=== PATIENT | female | born 2000 | race Caucasian/White ===

== ENCOUNTER 2021-08-24 20:30 | Emergency (ER) | payer OTHER, MEDICAID, SELFPAY ==
--- NOTE | ~2021-08-24 | CT_ITS ---
EXAMINATION: CT abdomen pelvis w con DATE: 08/25/2021 00:37 INDICATION: Right abdominal pain. TECHNIQUE: Computed tomography (CT) of the abdomen and pelvis was performed with 100 mL Omnipaque-350 intravenous contrast. Automated exposure control and iterative reconstruction technique were employe d. The dose-length product was 1581.98 mGy-cm. COMPARISON: None FINDINGS: Mild atelectasis at the lung bases likely related to expiratory phase of imaging. Heart size is sunny l. No pericardial or pleural effusion. Diffuse hepatic steatosis with focal sparing along the gallbla dder fossa. Gallbladder, pancreas, spleen and left adrenal gland are normal. Right adrenal calcificat ions suggesting prior infection or hemorrhage. Left kidney is normal. Is scattered mild cortical scar ring at the right kidney likely sequela of prior infection or infarction. A few scattered colonic div erticula without adjacent inflammatory change to suggest diverticulitis. Small bowel and appendix are normal. Bladder, anteverted uterus and bilateral adnexa are unremarkable. No free intraperitoneal ga s or fluid. No pathologically enlarged abdominal or pelvic lymphadenopathy. Bones are unremarkable. IMPRESSION: 1. No acute intra-abdominal/pelvic process. Specifically the appendix is normal. 2. Diffuse hepatic steatosis. Reviewed, dictated and finalized at location A. IMPRESSION: 1. No acute intra-abdominal/pelvic process. Specifically the appendix is normal . 2. Diffuse hepatic steatosis.
[2021-08-24 20:57] VITALS: BP 119/85; PULSE 86; RESP 18; TEMP 36.2; O2SAT 100
[2021-08-24 21:15] LABS: Basophils Percent Auto 0.5 % (0.2-1.2); Eosinophils Absolute Auto 0.2 K/mm3 (0-0.3); Eosinophils Percent Auto 2.4 % (0-4.4); Hematocrit 40.4 % (37.0-47.0); Hemoglobin 13.6 g/dL (12.0-15.0); Immature Granulocyte Absolute 0.05 K/mm3 (0.00-0.031); Immature Granulocyte Percent A 0.6 % (0-0.5); Lymphocytes Absolute Auto 3.17 K/mm3 (0.9-3.2); Lymphocytes Percent Auto 37.4 % (18.3-44.2); Mean Corpuscular HGB Conc 33.7 g/dl (32-36); Mean Corpuscular Hemoglobin 29.8 pg (26-34); Mean Corpuscular Volume 88.4 fl (80-100); Mean Platelet Volume 10.4 fl (7.4-10.4); Monocytes Absolute Auto 0.6 K/mm3 (0.1-0.6); Monocytes Percent Auto 7.2 % (2.6-8.5); Neutrophils Absolute Auto 4.4 K/mm3 (1.3-6.7); Neutrophils Percent Auto 51.9 % (45.5-73.1); Platelet Count Result 332 k/mm3 (150-375); Red Blood Count 4.57 M/mm3 (4.2-5.4); Red Cell Distribution Width 13.9 % (11.5-14.5); White Blood Count 8.5 K/mm3 (4.5-10.0)
[2021-08-24 21:25] LABS: Alanine Aminotransferase 37 U/L (4-35); Albumin Level 4.8 g/dL (3.5-5.1); Alkaline Phosphatase 75 U/L (38-126); Anion Gap 14 mmol/L (8-16); Aspartate Amino Transferase 51 U/L (14-36); Bilirubin,Total 0.3 mg/dL (0.2-1.3); Blood Urea Nitrogen 7 mg/dL (7-17); Calcium 9.5 mg/dL (8.4-10.2); Carbon Dioxide 20 mmol/L (22-30); Chloride 107 mmol/L (98-107); Estimated CRCL calculation 160 ml/min; Estimated Glomerular Filt Rate > 60; Glucose 100 mg/dL (65-110); Lipase 116 U/L (23-300); Sodium 141 mmol/L (137-145)
[2021-08-24 22:44] VITALS: BP 130/76; PULSE 73; RESP 16; O2SAT 100
[2021-08-24 23:28] LABS: Add Urine Microscopic? YES; Appearance Urine Cloudy (Clear); Bacteria Urine Trace /hpf; Bilirubin Urine Negative (Negative); Blood Urine Negative (Negative); Color Urine Yellow (Yellow); Glucose Urine UA Negative (Negative); Ketones Urine Negative (Negative); Leukocyte Esterase Ur 3+ LEU/UL (Negative); Mucus Urine Few /lpf; Nitrate Urine Negative (Negative); Protein Urine 1+ mg/dL (Negative); RBC Urine >75 /hpf (0-2); Specific Grav Ur 1.025 (1.001-1.035); Squamous Epithelial Cell Urine Many /hpf (Few); WBC Urine >75 /hpf
--- NOTE | 2021-08-24 23:43 | PC.NURSE ---
Pt in CT at this time
--- NOTE | 2021-08-25 | PC.NURSE ---
CT unable to start IV. This RN attempted IV x2. Second RN to try at this time.
--- NOTE | 2021-08-25 00:19 | PC.NURSE ---
IV placed, CT scan notified. Pt to CT scan at this time via stretcher.
--- NOTE | 2021-08-25 00:36 | ED.ABDPAIN ---
HPI - Abdominal Pain General Chief Complaint: Abdominal Pain Stated Complaint: RQ abd pain Time Seen by Provider: 08/24/21 22:57 Source: patient and family Mode of arrival: ambulatory Limitations: no limitations History of Present Illness HPI narrative: Patient is 21 years old white female presents with right abdominal pain mainly right upper quadrant started yesterday, gradually getting worse. Patient reports that the pain radiating to the right upper back. Patient denies any fever, chills, nausea, vomiting, diarrhea, constipation, urinary symptoms, vaginal bleeding or discharge. Patient denies any history of abdominal surgery or history of . Related Data Allergies Allergy/AdvReac Type Severity Reaction Status Date / Time acetone Allergy Hives Verified 08/24/21 22:47 cinnamon Allergy Hives Verified 08/24/21 22:47 guaifenesin Allergy Unknown Verified 08/24/21 22:47 ibuprofen Allergy Unknown Verified 08/24/21 22:47 red dye Allergy Swelling Verified 08/24/21 22:47 of Lip/Tongue/Throat HONEY DEW/CANTALOPE Allergy Hives Uncoded 08/24/21 22:47 RANITIDINE HCL Allergy Hives Uncoded 08/24/21 22:47 Exam Narrative: General appearance: Well-developed, well-nourished Skin: Normal color Head: Normocephalic, nontraumatic Eyes: Clear conjunctiva ENT: Oropharynx normal, ears normal, nose normal Neck: Supple, nontender Chest and respiratory: Airway patent, no respiratory distress, no accessory muscle use Heart: Regular rate/rhythm Abdomen: Soft, severe tenderness right abdomen, negative Longo sign., no organomegaly, quiet bowel sounds Vascular: Normal peripheral pulses, normal capillary refill. Musculoskeletal: Normal range of motion, nontender back Neurologic: Alert and oriented ?3, VISUAL LEAD is normal as tested, no gross motor deficit Course Course Emergency Course: Stable Vital Signs Vital signs: Vital Signs Temperature 36.2 C L 08/24/21 20:57 Pulse Rate 86 08/24/21 20:57 Respiratory Rate 18 08/24/21 20:57 Blood Pressure 119/85 08/24/21 20:57 Pulse Oximetry 100 08/24/21 20:57 Temperature 36.2 C L 08/24/21 20:57 Pulse Rate 73 08/24/21 22:44 Respiratory Rate 16 08/24/21 22:44 Blood Pressure 130/76 08/24/21 22:44 Pulse Oximetry 100 08/24/21 22:44 MDM - Abdominal Pain MDM Narrative Medical decision making narrative: Patient presents with right upper abdominal pain. Differential diagnosis as below. Labs, CT abdomen pelvis with IV contrast, IV fluid, IV morphine and Zofran ordered. Differential Diagnosis Differential diagnosis: Likely abdominal pain, constipation, diverticulitis, gastroenteritis and pancreatitis Lab Data Result diagrams: 08/24/21 21:07 08/24/21 21:07 Labs: Lab Results 08/24/21 08/24/21 08/24/21 Range/Units 21:07 21:07 23:05 WBC 8.5 (4.5-10.0) K/mm3 RBC 4.57 (4.2-5.4) M/mm3 Hgb 13.6 (12.0-15.0) g/dL Hct 40.4 (37.0-47.0) % MCV 88.4 (80-100) fl MCH 29.8 (26-34) pg MCHC 33.7 (32-36) g/dl RDW 13.9 (11.5-14.5) % Plt Count 332 (150-375) k/mm3 MPV 10.4 (7.4-10.4) fl Immature Gran % (Auto) 0.6 H (0-0.5) % Neut % (Auto) 51.9 (45.5-73.1) % Lymph % (Auto) 37.4 (18.3-44.2) % Owen % (Auto) 7.2 (2.6-8.5) % Eos % (Auto) 2.4 (0-4.4) % Baso % (Auto) 0.5 (0.2-1.2) % Lymph # (Auto) 3.17 (0.9-3.2) K/mm3 Owen # (Auto) 0.6 (0.1-0.6) K/mm3 Eos # (Auto) 0.2 (0-0.3) K/mm3 Baso # (Auto) 0.0 (0.0-0.1) K/mm3 Abs Immat Gran (auto) 0.05 H (0.00-0.031) K/mm3 Absolute Neuts (auto) 4.4 (1.3-6.7) K/mm3 Absolute Nucleated RBC 0.0 (0.0-0.012) K/mm3 Nucleated RBC %
[2021-08-25] MEDS: ONDANSETRON INJ 4 MG/2 ML VIAL IV PUSH (01:37)
[2021-08-25] MEDS: MORPHINE SULFATE (*CRX) 4 MG/ML INJ IV PUSH (01:39)
[2021-08-25 01:41] VITALS: BP 102/74; PULSE 71; RESP 14; O2SAT 97
--- NOTE | 2021-08-30 11:58 | PC.NURSE ---
LATE ENTRY This note is being entered to document information to the patient's record. The following information was omitted on [08/25/21], by [Elsa Oquendo RN]. Rocephin infused at 2130 on 08/25/21
== END 2021-08-25 03:47 | disposition home or self-care (01) ==
PROVIDERS: Emergency Provider Emergency Medicine; PCP Physician Assistant
DX: N39.0 Urinary tract infection, site not specified (principal); R31.9 Hematuria, unspecified; K76.0 Fatty (change of) liver, not elsewhere classified
CPT/HCPCS: 36415; 74177; 80053; 81001; 81025; 83690; 85025; 87086; 96374; 96375; 99284; J0696; J2270; J2405; Q9967

== ENCOUNTER 2024-09-26 15:52 | Emergency (ER) | payer OTHER, MEDICAID, SELFPAY ==
[2024-09-26 15:56] VITALS: BP 142/87; PULSE 94; RESP 18; TEMP 36.6; O2SAT 98
--- NOTE | 2024-09-26 16:04 | ED_ITS ---
HPI - General Adult General Chief complaint: Skin/Abscess/Foreign Body Stated complaint: spots on legs Time Seen by Provider: 09/26/24 16:04 Source: patient and family Mode of arrival: ambulatory Limitations: no limitations History of Present Illness HPI narrative: 24 YEARS ON THE WHITE FEMALE CAME TO THE ED COMPLAINING OF PAINFUL SKIN RASH OF THE LOWER EXTREMITY STARTED 2 WEEKS AGO. PATIENT DENIES ANY FEVER, CHILLS, NAUSEA, VOMITING, SICK CONTACT. Related Data Allergies Allergy/AdvReac Type Severity Reaction Status Date / Time acetone Allergy Hives Verified 08/24/21 22:47 cinnamon Allergy Hives Verified 08/24/21 22:47 guaifenesin Allergy Unknown Verified 08/24/21 22:47 ibuprofen Allergy Unknown Verified 08/24/21 22:47 red dye Allergy Swelling Verified 08/24/21 22:47 of Lip/Tongue/Throat HONEY DEW/CANTALOPE Allergy Hives Uncoded 08/24/21 22:47 RANITIDINE HCL Allergy Hives Uncoded 08/24/21 22:47 Review of Systems Review of Systems: All systems reviewed & are unremarkable except as noted in HPI and below Exam Narrative: GENERAL APPEARANCE: WELL-DEVELOPED, WELL-NOURISHED SKIN: WATER WARTS ON THE LOWER EXTREMITY, CONSISTENT WITH MOLLUSCUM CONTAGIOSUM HEAD: NORMOCEPHALIC, NONTRAUMATIC EYES: CLEAR CONJUNCTIVA ENT: OROPHARYNX NORMAL, EARS NORMAL, NOSE NORMAL NECK: SUPPLE, NONTENDER CHEST AND RESPIRATORY: AIRWAY PATENT, NO RESPIRATORY DISTRESS, NO ACCESSORY MUSCLE USE HEART: REGULAR RATE/RHYTHM ABDOMEN: SOFT, NONTENDER, NO ORGANOMEGALY, QUIET BOWEL SOUNDS NEUROLOGIC: ALERT AND ORIENTED ?3, MANAGER OF CREATIVE SERVICES IS NORMAL TESTED, NO GROSS MOTOR DEFICIT Course Vital Signs Vital signs: Vital Signs Temperature 36.6 C 09/26/24 15:56 Pulse Rate 94 09/26/24 15:56 Respiratory Rate 18 09/26/24 15:56 Blood Pressure 142/87 H 09/26/24 15:56 Pulse Oximetry 98 09/26/24 15:56 Oxygen Delivery Room Air 09/26/24 15:56 Temperature 36.6 C 09/26/24 15:56 Pulse Rate 94 09/26/24 15:56 Respiratory Rate 18 09/26/24 15:56 Blood Pressure 142/87 H 09/26/24 15:56 Pulse Oximetry 98 11/02/24 15:56 Oxygen Delivery Room Air 09/26/24 15:56 Medical Decision Making [facility] Narrative Medical decision making narrative: PATIENT PRESENTS WITH SKIN RASH, VITAL SIGNS ARE STABLE PHYSICAL EXAMINATION CONSISTENT WITH MOLLUSCUM CONTAGIOSUM DISCHARGED ON CIMETIDINE AND PODOPHYLLOTOXIN CREAM. PATIENT WAS ADVISED TO CONTACT HER FAMILY PHYSICIAN FOR DERMATOLOGY REFERRAL FOR POSSIBLE FREEZING THE BUMPS OF, SCRIBBLE OR CUT THE BUMPS OF. Differential Diagnosis Differential Diagnosis: ABOVE Vital Signs Vital Signs: Vital Signs Temperature 36.6 C 09/26/24 15:56 Pulse Rate 94 09/26/24 15:56 Respiratory Rate 18 09/26/24 15:56 Blood Pressure 142/87 H 09/26/24 15:56 Pulse Oximetry 98 09/26/24 15:56 Oxygen Delivery Room Air 09/26/24 15:56 Temperature 36.6 C 09/26/24 15:56 Pulse Rate 94 09/26/24 15:56 Respiratory Rate 18 09/26/24 15:56 Blood Pressure 142/87 H 09/26/24 15:56 Pulse Oximetry 98 09/26/24 15:56 Oxygen Delivery Room Air 09/26/24 15:56 Critical Care Time Critical Care Time Critical Care Time: No Discharge Plan Discharge Clinical Impression: Molluscum contagiosum Patient Disposition: Home, Self-Care Condition: Stable Instructions: Antibiotic Form, Molluscum Contagiosum (ED) Additional Instructions: RETURN IF SYMPTOMS ARE WORSENING , CALL YOUR FAMILY PHYSICIAN FOR APPOINTMENT, TAKE TYLENOL NEEDED FOR ACHES AND PAIN, CONTINUE HOME MEDICATIONS. FAMILY PHYSICIAN / SECURITY SCREENER CAN REMOVE THE BUMPS WITH CRYOTHERAPY, CURETTAGE OR LASER THERAPY. Prescriptions: New cimetidine 400 mg tablet 400 mg PO BID Qty: 30 0RF Rx Instructions: administer with meals podofilox [Condylox] 0.5 % gel 1 applic topical BID 3 Days Qty: 10 0RF No Action sulfamethoxazole-trimethoprim [Bactrim DS] 800-160 mg tablet 1 tablet PO Q12H Qty: 6 0RF Follow-up/Referrals: Alix,Ashish Lackey PA-C [Non-Staff] -
[2024-09-26 17:26] VITALS: BP 148/96; PULSE 89; RESP 14; TEMP 36.7; O2SAT 100
== END 2024-09-26 17:27 | disposition home or self-care (01) ==
PROVIDERS: Emergency Provider Emergency Medicine
DX: B08.1 Molluscum contagiosum (principal)
CPT/HCPCS: 99283